=== PATIENT | female | born 1995 | race Caucasian/White ===

== ENCOUNTER 2017-06-09 09:41 | Day surgery (SDC) | payer BC ==
[2017-06-06 11:23] VITALS: BMI 19.5
[2017-06-09] MEDS ORDERED: PROPOFOL 20 ML ONE (10:16)
[2017-06-09 11:33] VITALS: TEMP 98.1
[2017-06-09 11:51] VITALS: BP 106/65; PULSE 72
--- NOTE | 2017-06-11 12:20 | PATH ---
Surgical Pathology Report Patient Name: ANJEL HIGH [facility]. Rec. #: [id number] /Age/Gender: 1995 (Age: 21) / F Account: [id number] Location: [facility]-ENDOSCOPY Taken: 06/09/2017 Received: 06/09/2017 Reported: 06/11/2017 Physicians: Drew Mcrae M.D. Specimen(s) Received A: BX DUODENUM B: BX DUODENAL BULB C: BX ANTRUM Clinical History The GERD, iron deficiency Rule out celiac disease, rule out H. Pylori Final Diagnosis A. DUODENUM, BIOPSY: DUODENAL MUCOSA WITH NO PATHOLOGIC FINDINGS. B. DUODENAL BULB, BIOPSY: DUODENAL MUCOSA SHOWING MILD CHRONIC INFLAMMATION AND MADDI'S GLAND HYPERPLASIA. C. ANTRUM, BIOPSY: MILD CHRONIC GASTRITIS. IMMUNOSTAIN IS NEGATIVE FOR H. PYLORI ORGANISMS. Electronically Signed Eloise Root M.D. Gross Description A. Received in formalin, labeled "duodenum" are 4 fragments of oviedo-pink tissue ranging from 0.3-0.4 cm in largest dimension. Submitted entirely in one cassette. B. Received in formalin, labeled "duodenal bulb" are 4 fragment of oviedo-pink tissue 0.3 cm in largest dimension each. Submitted entirely in one cassette. C. Received in formalin, labeled "antrum" are two fragments of oviedo-pink tissue 0.3 cm in greatest dimension each. Submitted entirely in one cassette. AF/06/09/2017 final/06/09/2017
== END 2017-06-09 12:15 | disposition home or self-care (01) ==
LOC: FASU-ENDO 09:41
PROVIDERS: ATTEND Internal Medicine Gastroenterology
PROC: 0DB98ZX Excision of Duodenum, Via Natural or Artificial Opening Endoscopic, Diagnostic (ICD-10-PCS; principal; 2017-06-09 11:10)
PROC: 0DB68ZX Excision of Stomach, Via Natural or Artificial Opening Endoscopic, Diagnostic (ICD-10-PCS; 2017-06-09 11:10)
DX: D51.9 Vitamin B12 deficiency anemia, unspecified (principal); K31.89 Other diseases of stomach and duodenum; K29.50 Unspecified chronic gastritis without bleeding
CPT/HCPCS: 84703; 88305-TC; 88342-TC